=== PATIENT | male | born 1970 | race Caucasian/White ===

== ENCOUNTER 2016-11-16 12:30 | Emergency (ER) | payer OTHER ==
[~2016-11-16] VITALS: Ht 167.6 cm; Wt 79.0 kg
[~2016-11-16 12:30] MED LIST: PRIN10TA PO
[2016-11-16 12:32] VITALS: BP 138/99; PULSE 116; RESP 20; TEMP 98.4; O2SAT 96
[2016-11-16 13:22] LABS: AUTOMATED NEUTROPHIL # 3.2 TH/MM3 (1.8-7.7); BASOPHIL % 0.7 % (0.0-2.0); EOSINOPHIL # 0.1 TH/MM3 (0-0.4); EOSINOPHIL % 1.1 % (0.0-4.0); HEMATOCRIT 50.3 % (39.0-51.0); HEMO FLAGS DIFF FINAL; LYMPH % 41.2 % (9.0-44.0); LYMPHOCYTE # 2.7 TH/MM3 (1.0-4.8); MEAN CELL VOLUME 101.4 FL (80.0-100.0); MEAN CORPUSCULAR HEMOGLOBIN 34.4 PG (27.0-34.0); MEAN CORPUSCULAR HGB CONC 33.9 % (32.0-36.0); MONO % 9.3 % (0.0-8.0); NEUT % 47.7 % (16.0-70.0); PLATELET COUNT 212 TH/MM3 (150-450); RED BLOOD COUNT 4.96 MIL/MM3 (4.50-5.90); RED CELL DISTRIBUTION WIDTH 16.8 % (11.6-17.2); WHITE BLOOD COUNT 6.6 TH/MM3 (4.0-11.0)
[2016-11-16] MEDS ORDERED: SODIUM CHLOR 0.9% 1000 ML INJ 1,000 ML IV ONE ×2 (13:30→15:30)
[2016-11-16 13:32] LABS: ANION GAP 14 MEQ/L (5-15); AST (GOT) 63 U/L (15-37); BICARBONATE 21.1 MEQ/L (21.0-32.0); BLOOD UREA NITROGEN 7 MG/DL (7-18); CHLORIDE 107 MEQ/L (98-107); GLOMERULAR FILTRATION RATE 56 ML/MIN (>89); POTASSIUM 3.5 MEQ/L (3.5-5.1); SODIUM (NA) 142 MEQ/L (136-145)
[2016-11-16 13:35] LABS: ALKALINE PHOSPHATASE 148 U/L (45-117); ALT (GPT) 69 U/L (12-78); TOTAL BILIRUBIN ADULT 0.6 MG/DL (0.2-1.0)
[2016-11-16] MEDS ORDERED: NICOTINE 21 MG/24 HR PATCH T-DERMAL ONE (14:00)
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
[2016-11-16 14:12] LABS: BLOOD, URINE TRACE (NEG); GLUCOSE,URINE NEG (NEG); KETONE, URINE NEG (NEG); NITRITE,URINE NEG (NEG); SQUAMOUS EPITHELIAL CELL URINE <1 /hpf (0-5); URINE COLOR YELLOW (YELLW/STRAW)
[2016-11-16 14:14] LABS: COMMENT (UR) CULT NOT INDICATED; CULTURE IF INDICATED CULT NOT INDICATED
[2016-11-16 14:14] LABS: ACETAMINOPHEN LESS THAN 2.0 MCG/ML (10.0-30.0)
--- NOTE | 2016-11-16 14:19 | RADRPT ---
EXAM DATE/TIME: 11/16/2016 14:06 [place] COMPARISON: No previous studies available for comparison. INDICATIONS : Altered mental status RADIATION DOSE: 38.93 CTDIvol (mGy) MEDICAL HISTORY : Hypertension. Cardiovascular disease SURGICAL HISTORY : None. ENCOUNTER: Initial ACUITY: 1 day PAIN SCALE: 0/10 LOCATION: cranial TECHNIQUE: Multiple contiguous axial images were obtained of the head. Using automated exposure control and adj ustment of the mA and/or kV according to patient size, radiation dose was kept as low as reasonably a chievable to obtain optimal diagnostic quality images. FINDINGS: CEREBRUM: The ventricles are normal for age. No evidence of midline shift, mass lesion, hemorrhage or acute in farction. No extra-axial fluid collections are seen. POSTERIOR FOSSA: The cerebellum and brainstem are intact. The 4th ventricle is midline. The cerebellopontine angle i s unremarkable. EXTRACRANIAL: The visualized portion of the orbits is intact. There is mucosal thickening in the maxillary sinuses several ethmoidal air cells. SKULL: The calvaria is intact. No evidence of skull fracture. CONCLUSION: 1. No acute hemorrhage, mass or evidence of infarction. 2. Mild mucosal thickening in the paranasal sinuses. Minh Hua MD on November 16, 2016 at 14:17 Board Certified Radiologist. This report was verified electronically.
[2016-11-16 14:59] VITALS: BP 142/97; PULSE 73; O2SAT 97
[2016-11-16] MEDS ORDERED: AMLO10CA PO (16:02)
[2016-11-16 17:52] VITALS: BP_SYST 142; BP_SYST 165; BP_DIAS 109; BP_DIAS 97; PULSE 73; PULSE 77; RESP 18; RESP 20; TEMP 97.8; TEMP 98.4; O2SAT 97; O2SAT 98
[2016-11-16 17:54] VITALS: BP 152/88
[2016-11-16] MEDS ORDERED: LORazepam 1 MG TAB PO PRN (18:00)
[2016-11-16] MEDS ORDERED: FLUMAZENIL 0.5 MG/5 ML VIAL IV PUSH PRN (18:00)
[2016-11-16] MEDS ORDERED: LORazepam 2 MG/ML VIAL IV PUSH PRN ×4 (18:00)
[2016-11-16] MEDS ORDERED: ACETAMINOPHEN 325 MG TAB PO PRN (18:00)
[2016-11-16] MEDS: LORazepam 2 MG TAB PO PRN ×2 (19:26→23:36)
[2016-11-16 22:05] VITALS: BP 139/74; PULSE 80; RESP 19; O2SAT 97
[2016-11-17 01:05] LABS: AMPHETAMINE, URINE NEG (NEG); BARBITURATES, URINE NEG (NEG); COCAINE, URINE NEG (NEG)
[2016-11-17 02:26] VITALS: BP 160/99; PULSE 84; RESP 18; O2SAT 96
[2016-11-17] MEDS: LORazepam 2 MG TAB PO PRN (02:33)
[2016-11-17 06:21] VITALS: BP 141/77; PULSE 81; RESP 19; O2SAT 98
== END 2016-11-17 10:16 ==
LOC: NEPD 12:30 → NEPJ 11-17 10:16
DX: F10.24 Alcohol dependence with alcohol-induced mood disorder (principal); T51.0X2A Toxic effect of ethanol, intentional self-harm, initial encounter; F12.90 Cannabis use, unspecified, uncomplicated; Y90.8 Blood alcohol level of 240 mg/100 ml or more; F17.210 Nicotine dependence, cigarettes, uncomplicated; I10 Essential (primary) hypertension; R00.0 Tachycardia, unspecified; R45.851 Suicidal ideations; I25.10 Atherosclerotic heart disease of native coronary artery without angina pectoris
CPT/HCPCS: 70450; 80053; 80307; 81001; 85025; 96360; 96361; 99285; J7030

== ENCOUNTER 2016-12-20 13:55 | Emergency (ER) | payer OTHER ==
[~2016-12-20] VITALS: Ht 170.2 cm; Wt 79.0 kg
[~2016-12-20 13:55] MED LIST changes: +AMLO10CA PO; -PRIN10TA PO
[2016-12-20 14:27] VITALS: BP 147/97; PULSE 100; RESP 20; TEMP 98.2; O2SAT 94
--- NOTE | 2016-12-20 15:58 | PD ---
HPI Chief Complaint: Psychiatric Symptoms Time Seen by Provider: 15:58 Travel History International Travel<30 days: No Contact w/Intl Traveler<30days: No Traveled to known affect area: No History of Present Illness HPI 46-year-old male with a history of alcohol abuse and hypertension is brought to the emergency department under Yepez act for suicidal ideations. Per the Yepez act report the patient told his psychiatric nurse partition her that he was having thoughts of suicide and she placed him under Yepez act. The patient states he drinks daily, has been drinking daily for about 30 years. His last alcoholic beverage was about 8 hours ago. He denies any attempts to harm himself, denies any ingestion of substances in an attempt to harm himself. He denies drug use, denies IV drug use. He is currently complaining of nausea. Denies any fever, chills, vomiting, diarrhea, chest pain, shortness breath, abdominal pain. No other complaints. PFSH Past Medical History Anxiety: Yes Depression: Yes Cardiovascular Problems: Yes Diabetes: No Diminished Hearing: No Hypertension: Yes ?: Not Social History Alcohol Use: Yes (excessive whisky use over the last months, had period of sober) Tobacco Use: Yes Substance Use: Yes Allergies-Medications (Allergen,Severity, Reaction): Coded Allergies: Iodine (Verified Allergy, Severe, 12/20/16) Per pt. Reported Meds & Prescriptions Reported Meds & Active Scripts Active Reported Amlodipine-Benazepril 10-20 Mg Cap 1 Cap PO DAILY Review of Systems Except as stated in HPI: all other systems reviewed are Neg Physical Exam Narrative GENERAL: Well-nourished and well-developed male patient in no acute distress who is nontoxic appearing. SKIN: Warm and dry. HEAD: Normocephalic and atraumatic. EYES: No injection, drainage, or hyphema noted. PERRLA. EOMI. ENT: No nasal drainage noted. Oropharynx is clear. NECK: Supple and the trachea is midline. CARDIOVASCULAR: Regular rate and rhythm. RESPIRATORY: Breath sounds are equal bilaterally with no accessory muscle use, wheezing, rhonchi, or crackles. GASTROINTESTINAL: Abdomen is soft, non-tender, and nondistended. MUSCULOSKELETAL: No obvious deformities, swelling, cyanosis, or ecchymosis is present throughout the upper and lower extremities. Patient has full range of motion without any signs of neurovascular compromise. NEUROLOGICAL: Awake, alert, and oriented. Normal speech and gait. Cranial nerves are grossly intact. Data Data Last Documented VS Vital Signs Date Time Temp Pulse Resp B/P Pulse Ox O2 Delivery O2 Flow Rate FiO2 12/20/16 18:44 99 20 150/89 100 Room Air 12/20/16 14:27 98.2 Orders Diet Regular Basic (12/20/16 Dinner) Complete Blood Count With Diff (12/20/16 15:14) Comprehensive Metabolic Panel (12/20/16 15:14) Psych Screen (12/20/16 15:14) Drug Screen, Random Urine (12/20/16 15:14) Alcohol (Ethanol) (12/20/16 15:14) Alcohol Withdrawal Asmt-Ciwa ONCE (12/20/16 16:11) Ondansetron Inj (Zofran Inj) (12/20/16 16:15) Flumazenil Inj (Romazicon Inj) (12/20/16 16:15) Lorazepam (Ativan) (12/20/16 16:15) Lorazepam Inj (Ativan Inj) (12/20/16 16:15) Lorazepam (Ativan) (12/20/16 16:15) Lorazepam Inj (Ativan Inj) (12/20/16 16:15) Lorazepam Inj (Ativan Inj) (12/20/16 16:15) Lorazepam Inj (Ativan Inj) (12/20/16 16:15) Ondansetron Odt (Zofran Odt) (12/20/16 19:00) Labs Laboratory Tests Test 12/20/16 12/20/16 15:45 19:00 White Blood Count 6.3 TH/MM3 Red Blood Count 4.68 MIL/MM3 Hemoglobin 16.1 GM/DL Hematocrit 47.6 % Mean Corpuscular Volume 101.5 FL Mean Corpuscular Hemoglobin 34.5 PG Mean Corpuscular Hemoglobin 33.9 % Concent Red Cell Distribution Width 15.8 % Platelet Count 172 TH/MM3 Mean Platelet Volume 8.4 FL Neutrophils (%) (Auto) 54.3 % Lymphocytes (%) (Auto) 35.3 % Monocytes (%) (Auto) 8.4 % Eosinophils (%) (Auto) 1.4 % Basophils (%) (Auto) 0.6 % Neutrophils # (Auto) 3.4 TH/MM3 Lymphocytes # (Auto) 2.2 TH/MM3 Monocytes # (Auto) 0.5 TH/MM3 Eosinophils # (Auto) 0.1 TH/MM3 Basophils # (Auto) 0.0 TH/MM3 CBC Comment DIFF FINAL Differential Comment Sodium Level 141 MEQ/L Potassium Level 3.9 MEQ/L Chloride Level 105 MEQ/L Carbon Dioxide Level 26.2 MEQ/L Anion Gap 10 MEQ/L Blood Urea Nitrogen 10 MG/DL Creatinine 1.43 MG/DL Estimat Glomerular Filtration 53 ML/MIN Rate Random Glucose 90 MG/DL Calcium Level 8.4 MG/DL Total Bilirubin 0.5 MG/DL Aspartate Amino Transf 39 U/L (AST/SGOT) Alanine Aminotransferase 43 U/L (ALT/SGPT) Alkaline Phosphatase 133 U/L Total Protein 7.4 GM/DL Albumin 3.6 GM/DL Ethyl Alcohol Level 269 MG/DL Urine Opiates Screen NEG Urine Barbiturates Screen NEG Urine Amphetamines Screen NEG Urine Benzodiazepines Screen NEG Urine Cocaine Screen NEG Urine Cannabinoids Screen POS MDM Medical Decision Making Medical Screen Exam Complete: Yes Emergency Medical Condition: Yes Differential Diagnosis Differential: Depression versus adjustment reaction versus anxiety versus PTSD versus psychosis NOS versus mood disorder NOS versus substance induced mood disorder versus ODD versus adjustment reaction versus schizophrenia versus bipolar disorder versus schizoaffective versus electrolyte abnormality Narrative Course Patient presents under a Yepez act. Physical examination and vital signs are essentially unremarkable. Patient is complaining of nausea, he is administered Zofran. CIWA protocol has been initiated. Psych screen has been ordered. Labs are unremarkable for any acute abnormalities. The patient is medically cleared for psychiatric evaluation and disposition. Diagnosis Primary Impression: Alcohol dependence with alcohol-induced mood disorder Sofia El December 20, 2016 15:58
[2016-12-20] MEDS ORDERED: FLUMAZENIL 0.5 MG/5 ML VIAL IV PUSH PRN (16:15)
[2016-12-20] MEDS ORDERED: LORazepam 2 MG TAB PO PRN (16:15)
[2016-12-20] MEDS ORDERED: ONDANSETRON HCL 4 MG/2 ML VIAL IV PUSH PRN (16:15)
[2016-12-20] MEDS ORDERED: LORazepam 2 MG/ML VIAL IV PUSH PRN ×4 (16:15)
[2016-12-20 16:32] LABS: AUTOMATED NEUTROPHIL # 3.4 TH/MM3 (1.8-7.7); BASOPHIL % 0.6 % (0.0-2.0); EOSINOPHIL # 0.1 TH/MM3 (0-0.4); EOSINOPHIL % 1.4 % (0.0-4.0); HEMATOCRIT 47.6 % (39.0-51.0); HEMO FLAGS DIFF FINAL; LYMPH % 35.3 % (9.0-44.0); LYMPHOCYTE # 2.2 TH/MM3 (1.0-4.8); MEAN CELL VOLUME 101.5 FL (80.0-100.0); MEAN CORPUSCULAR HEMOGLOBIN 34.5 PG (27.0-34.0); MEAN CORPUSCULAR HGB CONC 33.9 % (32.0-36.0); MONO % 8.4 % (0.0-8.0); NEUT % 54.3 % (16.0-70.0); PLATELET COUNT 172 TH/MM3 (150-450); RED BLOOD COUNT 4.68 MIL/MM3 (4.50-5.90); RED CELL DISTRIBUTION WIDTH 15.8 % (11.6-17.2); WHITE BLOOD COUNT 6.3 TH/MM3 (4.0-11.0)
[2016-12-20 17:10] LABS: ANION GAP 10 MEQ/L (5-15); AST (GOT) 39 U/L (15-37); BICARBONATE 26.2 MEQ/L (21.0-32.0); BLOOD UREA NITROGEN 10 MG/DL (7-18); CHLORIDE 105 MEQ/L (98-107); GLOMERULAR FILTRATION RATE 53 ML/MIN (>89); POTASSIUM 3.9 MEQ/L (3.5-5.1); SODIUM (NA) 141 MEQ/L (136-145)
[2016-12-20 17:15] LABS: ALKALINE PHOSPHATASE 133 U/L (45-117); ALT (GPT) 43 U/L (12-78); TOTAL BILIRUBIN ADULT 0.5 MG/DL (0.2-1.0)
[2016-12-20 18:44] VITALS: BP 150/89; PULSE 99; RESP 20; O2SAT 100
[2016-12-20] MEDS: ONDANSETRON ODT 4 MG TAB PO PRN (18:54)
[2016-12-20] MEDS: LORazepam 1 MG TAB PO PRN (18:58)
[2016-12-20 19:25] LABS: AMPHETAMINE, URINE NEG (NEG); BARBITURATES, URINE NEG (NEG); COCAINE, URINE NEG (NEG)
[2016-12-20 22:00] VITALS: BP 138/84; PULSE 94; RESP 18; O2SAT 95
[2016-12-21] MEDS: LORazepam 1 MG TAB PO PRN ×2 (01:35→06:36)
[2016-12-21] MEDS: ONDANSETRON ODT 4 MG TAB PO PRN (01:35)
[2016-12-21 02:08] VITALS: BP 150/78; PULSE 106; RESP 18; O2SAT 95
[2016-12-21 06:25] VITALS: BP 143/79; PULSE 105; RESP 18; O2SAT 95
[2016-12-21 10:46] VITALS: BP 154/95; PULSE 107; RESP 18
[2016-12-21 12:22] VITALS: BP 154/95; PULSE 107; RESP 18
--- NOTE | 2016-12-21 14:49 | PD.CONS ---
Provisional Diagnosis Admission Date [place] I. Alcohol induced mood disorder, alcohol use disorder, cannabis use disorder [place] II. Deferred [place] III. HTN History of Present Illness Service Psychiatry Consult Requested By Primary Care Physician 46-year-old man, domicile with his in [place], unemployed, without any previous psychiatric history, no previous suicidal attempts, no pedal psychiatric hospitalizations, alcohol use disorder, with a history of alcohol abuse and hypertension is brought to the emergency department under Yepez act for suicidal ideations. Per the Yepez act report the patient told his psychiatric nurse partition her that he was having thoughts of suicide and she placed him under Yepez act. The patient states he drinks daily, has been drinking daily for about 30 years. His last alcoholic beverage was about 8 hours ago. He denies any attempts to harm himself, denies any ingestion of substances in an attempt to harm himself. Patient is motivated to be discharged to detox program.. Review of Systems Constitutional: DENIES: Diaphoretic episodes, Fatigue, Fever, Weight gain, Weight loss, Chills, Dizziness, Change in appetite, Night Sweats Endocrine: DENIES: Heat/cold intolerance, Polydipsia, Polyuria, Polyphagia Eyes: DENIES: Blurred vision, Diplopia, Eye inflammation, Eye pain, Vision loss , Photosensitivity, Double Vision Ears, nose, mouth, throat: DENIES: Tinnitus, Hearing loss, Vertigo, Nasal discharge, Oral lesions, Throat pain, Hoarseness, Ear Pain, Running Nose, Epistaxis, Sinus Pain, Toothache, Odynophagia Respiratory: DENIES: Apneas, Cough, Snoring, Wheezing, Hemoptysis, Sputum production, Shortness of breath Cardiovascular: DENIES: Chest pain, Palpitations, Syncope, Dyspnea on Exertion , PND, Lower Extremity Edema, Orthopnea, Claudication Gastrointestinal: DENIES: Abdominal pain, Black stools, Bloody stools, Constipation, Diarrhea, Nausea, Vomiting, Difficulty Swallowing, Anorexia Genitourinary: DENIES: Sexual dysfunction, Urinary frequency, Urinary incontinence, Urgency, Hematuria, Dysuria, Nocturia, Penile Discharge, Testicular Pain, Testicular Swelling Integumentary: DENIES: Abnormal pigmentation, Nail changes, Pruritus, Rash Hematologic/lymphatic: DENIES: Bruising, Lymphadenopathy Immunologic/allergic: DENIES: Eczema, Urticaria Neurologic: DENIES: Abnormal gait, Headache, Localized weakness, Paresthesias, Seizures, Speech Problems, Tremor, Poor Balance Past Family Social History Coded Allergies: Iodine (Verified Allergy, Severe, 12/20/16) Per pt. Reported Medications Amlodipine-Benazepril 10-20 Mg Cap1 Cap PO DAILY #30 CAP Ref 0 11/16/16 Social History Patient was born and raised in [place], he lives in [place] with , he is unemployed, his highest level of education is has Patient's Strengths (min. 2) He has a , he is committed to go to detox Physical Exam Vital Signs Vital Signs Date Time Temp Pulse Resp B/P Pulse Ox O2 Delivery O2 Flow Rate FiO2 12/21/16 12:22 107 18 154/95 Room Air 12/21/16 06:25 95 12/20/16 14:27 98.2 Lab Results Laboratory Tests Test 12/20/16 12/20/16 15:45 19:00 White Blood Count 6.3 TH/MM3 Red Blood Count 4.68 MIL/MM3 Hemoglobin 16.1 GM/DL Hematocrit 47.6 % Mean Corpuscular Volume 101.5 FL Mean Corpuscular Hemoglobin 34.5 PG Mean Corpuscular Hemoglobin 33.9 % Concent Red Cell Distribution Width 15.8 % Platelet Count 172 TH/MM3 Mean Platelet Volume 8.4 FL Neutrophils (%) (Auto) 54.3 % Lymphocytes (%) (Auto) 35.3 % Monocytes (%) (Auto) 8.4 % Eosinophils (%) (Auto) 1.4 % Basophils (%) (Auto) 0.6 % Neutrophils # (Auto) 3.4 TH/MM3 Lymphocytes # (Auto) 2.2 TH/MM3 Monocytes # (Auto) 0.5 TH/MM3 Eosinophils # (Auto) 0.1 TH/MM3 Basophils # (Auto) 0.0 TH/MM3 CBC Comment DIFF FINAL Differential Comment Sodium Level 141 MEQ/L Potassium Level 3.9 MEQ/L Chloride Level 105 MEQ/L Carbon Dioxide Level 26.2 MEQ/L Anion Gap 10 MEQ/L Blood Urea Nitrogen 10 MG/DL Creatinine 1.43 MG/DL Estimat Glomerular Filtration 53 ML/MIN Rate Random Glucose 90 MG/DL Calcium Level 8.4 MG/DL Total Bilirubin 0.5 MG/DL Aspartate Amino Transf 39 U/L (AST/SGOT) Alanine Aminotransferase 43 U/L (ALT/SGPT) Alkaline Phosphatase 133 U/L Total Protein 7.4 GM/DL Albumin 3.6 GM/DL Ethyl Alcohol Level 269 MG/DL Urine Opiates Screen NEG Urine Barbiturates Screen NEG Urine Amphetamines Screen NEG Urine Benzodiazepines Screen NEG Urine Cocaine Screen NEG Urine Cannabinoids Screen POS Mental Status Examination Appearance man, age appearing, hospital [facility], calm and cooperative Speech: Unremarkable Memory: Unremarkable Thought Process: Logical Thought Content: Unremarkable Hallucination Type: None Suicidal Ideation: No Previous Suicide Attempts: No Homicidal Ideation: No Judgment: WNL Affect: Good Motor Activity: Normal gait Assessment & Plan Problem List: (1) Alcohol dependence with alcohol-induced mood disorder Assessment & Plan: At the moment of this psychiatric evaluation the patient denies depressive symptoms, he denies withdrawal symptoms, he denies anxiety, he denies psychosis. He denies suicidal or homicidal ideation, he denies visual and auditory hallucinations. Patient is clinically sober. No withdrawal symptoms reported. Logical, coherent, relevant oriented 3. Patient expresses his motivation to be discharged to a detox program. He was presented to her [facility] act and accepted. Extensive motivation, support him psycho education provided. No indication for psychotropics at this moment. He does not meet criteria for psychiatric admission. His contacted by phone verbalize agreement and understanding with the plan. Yepez act will be lifted.. ICD Code: F10.24 Assessment & Plan Estimated LOS: Je Hodgson MD Dec 21, 2016 14:49
== END 2016-12-21 12:42 ==
LOC: NEPJ 13:55
DX: F10.24 Alcohol dependence with alcohol-induced mood disorder (principal); F12.90 Cannabis use, unspecified, uncomplicated; I10 Essential (primary) hypertension; Y90.8 Blood alcohol level of 240 mg/100 ml or more; Z72.0 Tobacco use; Z79.899 Other long term (current) drug therapy
CPT/HCPCS: 80053; 80307; 85025; 99285